=== PATIENT | female | born 1950 | race Caucasian/White ===

== ENCOUNTER 2020-05-26 12:44 | Emergency (ER) | payer MEDICARE, BC ==
[~2020-05-26] VITALS: Ht 149.9 cm; Wt 64.9 kg
[~2020-05-26 12:44] MED LIST: ATORVASTATIN CA20 MG PO; GLIPIZIDE-METF1 EAC2 PO; IPRATROPIUM BRO30 ML PO; LIPITOR10 MG PO; MACROBID 100 M100 MG PO; PROPRANOLOL HCL10 MG PO; ZANTAC 150 MG PO; [UNRECOGNIZED DRUG - CODE] PO; [UNRECOGNIZED DRUG - OTHER] PO
[2020-05-26] MEDS ORDERED: SODIUM CHLORIDE 0.9% 1000ML 1,000 ML IV STA (13:14)
[2020-05-26] MEDS ORDERED: ONDANSETRON HCL INJ 2MG/ML 2ML 2 MG/ML VIAL IV STA (13:14)
[2020-05-26] MEDS ORDERED: PANTOPRAZOLE 40 MG 10ML VIAL IV STA (13:14)
--- NOTE | 2020-05-26 13:42 | Diagnostic Imaging Report ---
EXAMINATION: CHEST SINGLE (PORTABLE) INDICATION: Weakness. Stomachache ^Y ^CHILLS ^[id number] ^[id number] COMPARISON: None FINDINGS: TUBES and LINES: None. LUNGS: Lungs are well inflated. Lungs are clear. There is no evidence of pneumonia or pulmonary edema. PLEURA: No pleural effusion or pneumothorax. HEART AND MEDIASTINUM: The cardiomediastinal silhouette is unremarkable. BONES AND SOFT TISSUES: No acute osseous lesion. Soft tissues are unremarkable. UPPER ABDOMEN: No free air under the diaphragm. IMPRESSION: No acute thoracic abnormality. Signed by: Dr. Gerry Tomlinson M.D. on 05/26/2020 1:39 PM
[2020-05-26 14:37] LABS: BASOPHILS # (AUTO) 0.1 (0.0-0.1); BASOPHILS % 0.5 % (0.0-1.0); EOSINOPHILS % 0.3 % (0.0-6.0); HEMATOCRIT 41.9 % (34.2-44.1); HEMOGLOBIN 13.5 g/dL (12.0-16.0); LYMPHOCYTES # (AUTO) 1.8 (1.0-3.2); LYMPHOCYTES % 19.3 % (18.0-39.1); MEAN CORPUSCULAR HEMOGLOBIN 26.6 pg (28-32); MEAN CORPUSCULAR HGB CONC 32.2 g/dL (31-35); MEAN CORPUSCULAR VOLUME 82.5 fL (81-99); MONOCYTES # (AUTO) 0.3 (0.2-0.8); MONOCYTES % 3.4 % (4.4-11.3); NEUTROPHILS # (AUTO) 7.2 (2.1-6.9); NEUTROPHILS % 76.1 % (38.7-80.0); PLATELET COUNT 291 x10e3/uL (140-360); RED BLOOD COUNT 5.08 x10e6/uL (3.6-5.1)
[2020-05-26 14:48] LABS: INR 0.83; PARTIAL THROMBOPLASTIN TIME 20.2 seconds (23.8-35.5); PROTHROMBIN TIME 11.8 seconds (11.9-14.5)
[2020-05-26 14:58] LABS: ALANINE AMINOTRANSFERASE 16 IU/L (0-55); ALBUMIN 4.5 g/dL (3.5-5.0); ALBUMIN/GLOBULIN RATIO 1.8 (0.8-2.0); ALKALINE PHOSPHATASE 67 IU/L (40-150); ANION GAP 17.1 mmol/L (8-16); BLOOD UREA NITROGEN 9 mg/dL (7-26); BUN/CREATININE RATIO 13 (6-25); CALCIUM 8.8 mg/dL (8.4-10.2); CARBON DIOXIDE 21 mmol/L (22-29); CHLORIDE 103 mmol/L (98-107); CREATINE KINASE 46 IU/L (29-168); CREATININE, SERUM 0.68 mg/dL (0.57-1.11); EST GLOMERULAR FILTRATION RATE > 60 ML/MIN (60-); GLUCOSE 245 mg/dL (74-118); LIPASE 17 U/L (8-78); MAGNESIUM 1.2 MG/DL (1.3-2.1); POTASSIUM 4.1 mmol/L (3.5-5.1); SODIUM 137 mmol/L (136-145)
[2020-05-26 15:44] LABS: BILIRUBIN,URINE NEGATIVE (NEGATIVE); CLARITY,URINE CLEAR (CLEAR); COLOR,URINE YELLOW (YELLOW); KETONES,URINE 2+ (NEGATIVE); LEUKOCYTE ESTERASE ,URINE NEGATIVE (NEGATIVE); NITRITE,URINE NEGATIVE (NEGATIVE); PROTEIN,URINE DIPSTICK NEGATIVE (NEGATIVE); URINE UROBILINOGEN 0.2 mg/dL (0.2 - 1)
[2020-05-26 15:55] LABS: BACTERIA,URINE RARE /HPF; EPITHELIAL CELLS,URINE FEW /LPF; WBC,URINE (MAN) 0-5 /HPF (0-5)
--- NOTE | 2020-05-26 16:54 | Emergency Department Note ---
History of Present Illnes History of Present Illness Chief Complaint: COVID PUI History of Present Illness This is a 69 year old female 69 y/o female presents to ED with c/o vomiting, diarrhea, nausea, chills, sweating, shaking and generalized malaise for more than a week on and off. Pt is diabetic. +covid screen. Pt also reports she takes suboxone maintenance for past opioid dependence. Historian: Patient Arrival Mode: Car Cephalometric Analyst Required: No Onset (how long ago): day(s) (10) Location: no pain Radiation: Reports non-radiation Severity: moderate Onset quality: gradual Timing of current episode: intermittent Progression: waxing and waning Chronicity: recurrent Context: Denies recent illness Relieving factors: none Exacerbating factors: none Associated symptoms: Reports denies other symptoms, Reports other (chills) Past Medical/Family History Physician Review I have reviewed the patient's past medical and family history. Any updates have been documented here. Past Medical History Recent Fever: No Clinical Suspicion of Infectio: No New/Unexplained Change in Ment: No Past Medical History: Diabetes Other Medical History: opiod dependence-takes suboxone Past Surgical History: Hysterectomy, Back Surgery Other Surgery: eye surgery @ 6yr surgery, surgery for cataracts Social History Smoking Cessation: Never Smoker Counseling Performed: No Alcohol Use: None Any Illegal Drug Use: No TB Exposure/Symptoms: No Physically hurt or threatened: No Family History Family history of heart diseas: No Other Any Pre-Existing Lines (PICC,: No Review of Systems Review of Systems Constitutional: Reports no symptoms EENTM: Reports no symptoms Cardiovascular: Reports no symptoms Respiratory: Reports no symptoms Gastrointestinal: Reports as per HPI Genitourinary: Reports no symptoms Musculoskeletal: Reports no symptoms Integumentary: Reports no symptoms Neurological: Reports no symptoms Psychological: Reports no symptoms Endocrine: Reports no symptoms Hematological/Lymphatic: Reports no symptoms Physical Exam Related Data Allergies: Coded Allergies: hydroxyzine (Verified Allergy, Unknown, 12/31/14) petrolatum,white (Verified Allergy, Unknown, 12/31/14) Uncoded Allergies: CALALMINE LOTION (Allergy, Mild, 01/15/15) HAND LOTIONS (Allergy, Mild, RASH, 12/31/14) ANTIBX (Allergy, Unknown, 12/31/14) DOXICYCLINE (Allergy, Unknown, 05/26/20) Triage Vital Signs Vital Signs Date Time Temp Pulse Resp B/P (MAP) Pulse Ox O2 Delivery O2 Flow Rate FiO2 05/26/20 13:06 98.7 100 15 171/87 98 Room Air Vital signs reviewed: Yes Physical Exam CONSTITUTIONAL Constitutional: Present well-developed, Present well-nourished HENT HENT: Present normocephalic, Present atraumatic, Present oropharynx clear/moist, Present nose normal HENT L/R: Present left ext ear normal, Present right ext ear normal EYES Eyes: Reports PERRL, Reports conjunctivae normal NECK Neck: Present ROM normal PULMONARY Pulmonary: Present effort normal, Present breath sounds normal CARDIOVASCULAR Cardiovascular: Present regular rhythm, Present heart sounds normal, Present capillary refill normal, Present normal rate GASTROINTESTINAL Abdominal: Present soft, Present nontender, Present bowel sounds normal GENITOURINARY Genitourinary: Present exam deferred SKIN Skin: Present warm, Present dry MUSCULOSKELETAL Musculoskeletal: Present ROM normal NEUROLOGICAL Neurological: Present alert, Present oriented x 3, Present no gross motor or sensory deficits PSYCHOLOGICAL Psychological: Present mood/affect normal, Present judgement normal Results Laboratory Result Diagram: 05/26/20 1418 05/26/20 1418 Laboratory Laboratory Tests Test 05/26/20 15:14 05/26/20 15:09 05/26/20 14:18 Urine Color Yellow (YELLOW) Urine Clarity Clear (CLEAR) Urine pH 5.5 (5 - 7) Urine Specific [place] 1.020 (1.010-1.025) Urine Protein Negative (NEGATIVE) Urine Glucose (UA) 2+ (NEGATIVE) Urine Ketones 2+ (NEGATIVE) Urine Blood Negative (NEGATIVE) Urine Nitrite Negative (NEGATIVE) Urine Bilirubin Negative (NEGATIVE) Urine Urobilinogen 0.2 mg/dL (0.2 - 1) Urine Leukocyte Esterase Negative (NEGATIVE) Urine RBC None /HPF (0-5) Urine WBC 0-5 /HPF (0-5) Urine Epithelial Cells Few /LPF (NONE) Urine Bacteria Rare /HPF (NONE) White Blood Count 9.49 x10e3/uL (4.8-10.8) Red Blood Count 5.08 x10e6/uL (3.6-5.1) Hemoglobin 13.5 g/dL (12.0-16.0) Hematocrit 41.9 % (34.2-44.1) Mean Corpuscular Volume 82.5 fL (81-99) Mean Corpuscular Hemoglobin 26.6 pg (28-32) Mean Corpuscular Hemoglobin Concent 32.2 g/dL (31-35) Red Cell Distribution Width 14.0 % (11.7-14.4) Platelet Count 291 x10e3/uL (140-360) Neutrophils (%) (Auto) 76.1 % (38.7-80.0) Lymphocytes (%) (Auto) 19.3 % (18.0-39.1) Monocytes (%) (Auto) 3.4 % (4.4-11.3) Eosinophils (%) (Auto) 0.3 % (0.0-6.0) Basophils (%) (Auto) 0.5 % (0.0-1.0) Neutrophils # (Auto) 7.2 (2.1-6.9) Lymphocytes # (Auto) 1.8 (1.0-3.2) Monocytes # (Auto) 0.3 (0.2-0.8) Eosinophils # (Auto) 0.0 (0.0-0.4) Basophils # (Auto) 0.1 (0.0-0.1) Absolute Immature Granulocyte (auto 0.04 x10e3/uL (0-0.1) Prothrombin Time 11.8 seconds (11.9-14.5) Prothromb Time International Ratio 0.83 Activated Partial Thromboplast Time 20.2 seconds (23.8-35.5) Sodium Level 137 mmol/L (136-145) Potassium Level 4.1 mmol/L (3.5-5.1) Chloride Level 103 mmol/L (98-107) Carbon Dioxide Level 21 mmol/L (22-29) Anion Gap 17.1 mmol/L (8-16) Blood Urea Nitrogen 9 mg/dL (7-26) Creatinine 0.68 mg/dL (0.57-1.11) Estimat Glomerular Filtration Rate > 60 ML/MIN (60-) BUN/Creatinine Ratio 13 (6-25) Glucose Level 245 mg/dL (74-118) Calcium Level 8.8 mg/dL (8.4-10.2) Magnesium Level 1.2 MG/DL (1.3-2.1) Total Bilirubin 0.3 mg/dL (0.2-1.2) Aspartate Amino Transf (AST/SGOT) 20 IU/L (5-34) Alanine Aminotransferase (ALT/SGPT) 16 IU/L (0-55) Alkaline Phosphatase 67 IU/L (40-150) Creatine Kinase 46 IU/L (29-168) Creatine Kinase MB 1.50 ng/mL (0-5.0) Troponin I 0.006 ng/mL (0-0.300) Total Protein 7.0 g/dL (6.5-8.1) Albumin 4.5 g/dL (3.5-5.0) Globulin 2.5 g/dL (2.3-3.5) Albumin/Globulin Ratio 1.8 (0.8-2.0) Lipase 17 U/L (8-78) Lab results reviewed: Yes Imaging Imaging results reviewed: Yes Assessment & Plan Medical Decision Making MDM nausea, diarrhea x 10 days - cbc, cmp, lipase, ua/cx, cxr, mag, covid swab - r/o dehydration, renal insuff, electrolyte abnl, uti, covid19 Reassessment Reassessment Patient has had no vomiting or diarrhea here. Labs look good. DC home - [facility], F/U PCP Assessment & Plan Final Impression: (1) Vomiting and diarrhea Depart Disposition: HOME, SELF-CARE Last Vital Signs Date Time Temp Pulse Resp B/P (MAP) Pulse Ox O2 Delivery O2 Flow Rate FiO2 05/26/20 13:21 63 142/72 100 Room Air 05/26/20 13:06 98.7 15 Home Meds Reported Medications [escargen] No Conflict Check, 100 MG PO DAILY 01/15/15 [Zantac 150 Mg Bid] No Conflict Check, 150 MG PO BID 01/01/15 Nitrofurantoin Monohyd/M-Cryst (MACROBID 100 MG CAPSULE) 100 Mg Capsule, 100 MG PO BID 12/31/14 [Arthro-7] No Conflict Check, MG PO BID 12/31/14 Ipratropium Schuyler (IPRATROPIUM BROMIDE) 30 Ml [place], PO PRN PRN for MIGRAINE 12/31/14 Atorvastatin Calcium* (LIPITOR*) 10 Mg Tablet, 10 MG PO 12/31/14 Propranolol Hcl (PROPRANOLOL HCL) 10 Mg Tablet, 10 MG PO BID, TAB 12/31/14 Glipizide/Metformin Hcl (GLIPIZIDE-METFORMIN 5-500 MG) 1 Each Tablet, 5-500 MG PO BID 12/31/14 Medications in the ED Pantoprazole Sodium 40 mg ONCE STAT IV ; Start 05/26/20 at 13:14; Stop 05/26/20 at 13:20; Status DC Ondansetron HCl 4 mg ONCE STAT IV ; Start 05/26/20 at 13:14; Stop 05/26/20 at 13:20; Status DC Sodium Chloride 1,000 ml @ 0 mls/hr Q0M STAT IV ; Start 05/26/20 at 13:14; Stop 05/26/20 at 13:17; Status DC DALI DIAZ MD May 26, 2020 16:54
[2020-05-26 17:52] VITALS: BP 148/78
== END 2020-05-26 17:55 | disposition home or self-care (01) ==
LOC: ER 13:12
DX: R11.2 Nausea with vomiting, unspecified (principal); R19.7 Diarrhea, unspecified; E11.65 Type 2 diabetes mellitus with hyperglycemia; R53.81 Other malaise; Z11.59 Encounter for screening for other viral diseases; Z79.891 Long term (current) use of opiate analgesic
CPT/HCPCS: 36415; 71045; 80053; 81001; 82550; 82553; 83690; 83735; 84484; 85025; 85610; 85730; 87040; 87086; 99284; C9113; J2405; J7030; U0002

== ENCOUNTER → 2021-01-28 | Day surgery (SDC) | payer MEDICARE, BC ==
[2021-01-23 11:08] LABS: BASOPHILS # (AUTO) 0.1 (0.0-0.1); EOSINOPHILS # (AUTO) 0.2 (0.0-0.4); EOSINOPHILS % 2.6 % (0.0-6.0); HEMATOCRIT 39.8 % (34.2-44.1); HEMOGLOBIN 12.9 g/dL (12.0-16.0); LYMPHOCYTES # (AUTO) 3.3 (1.0-3.2); LYMPHOCYTES % 39.4 % (18.0-39.1); MEAN CORPUSCULAR HEMOGLOBIN 27.7 pg (28-32); MEAN CORPUSCULAR HGB CONC 32.4 g/dL (31-35); MEAN CORPUSCULAR VOLUME 85.4 fL (81-99); MONOCYTES # (AUTO) 0.7 (0.2-0.8); MONOCYTES % 8.6 % (4.4-11.3); NEUTROPHILS % 47.8 % (38.7-80.0); PLATELET COUNT 268 x10e3/uL (140-360); RED BLOOD COUNT 4.66 x10e6/uL (3.6-5.1); RED CELL DISTRIBUTION WIDTH 13.8 % (11.7-14.4)
[~2021-01-28] MED LIST changes: +AMLODIPINE BESYL5 MG PO; +FENTANYL CITRATE/PF 100MCG/2 ML INJ ONE; +GLIPIZIDE5 MG PO; +METFORMIN HCL500 MG PO; +MIDAZOLAM HCL 2 MG/2 ML VIAL ONE; +PROPOFOL IV EMULSION 10 MG/ML 20 ML VIAL ONE; +SUBOXONE 2 MG-1 EAC2 PO; +TAGAMET HB200 MG PO; +ZESTRIL10 MG PO
[2021-01-28 17:30] VITALS: BP 117/76
== END | disposition home or self-care (01) ==
LOC: OR 12:28
PROVIDERS: ATTEND Internal Medicine Gastroenterology
DX: K59.00 Constipation, unspecified (principal); D12.4 Benign neoplasm of descending colon; D12.8 Benign neoplasm of rectum; K29.70 Gastritis, unspecified, without bleeding; K29.80 Duodenitis without bleeding; K20.90 Esophagitis, unspecified without bleeding; K22.8 Other specified diseases of esophagus; K21.9 Gastro-esophageal reflux disease without esophagitis; K44.9 Diaphragmatic hernia without obstruction or gangrene; K57.30 Diverticulosis of large intestine without perforation or abscess without bleeding; K64.8 Other hemorrhoids; Z87.11 Personal history of peptic ulcer disease; E11.9 Type 2 diabetes mellitus without complications; I10 Essential (primary) hypertension; E78.5 Hyperlipidemia, unspecified; N39.0 Urinary tract infection, site not specified; Z01.810 Encounter for preprocedural cardiovascular examination; Z01.812 Encounter for preprocedural laboratory examination; Z20.822 Contact with and (suspected) exposure to COVID-19; Z79.84 Long term (current) use of oral hypoglycemic drugs; Z68.29 Body mass index [BMI] 29.0-29.9, adult
CPT/HCPCS: 36415 ×2; 43239; 45380; 45385; 82948; 85025; 88305; 88312; 93005; J2250; J2704; J3010; U0002